=== PATIENT | male | born 1985 | race Caucasian/White ===

== ENCOUNTER 2017-05-12 11:27 | Emergency (ER) | payer MEDICAID ==
[~2017-05-12] VITALS: Ht 185.4 cm; Wt 108.9 kg
[2017-05-12 11:57] VITALS: BP 134/84
== END 2017-05-12 13:05 | disposition home or self-care (01) ==
LOC: EDBD 11:27 → ER 11:27
DX: L25.9 Unspecified contact dermatitis, unspecified cause (principal); F17.210 Nicotine dependence, cigarettes, uncomplicated; Z76.0 Encounter for issue of repeat prescription

== ENCOUNTER 2017-07-19 11:53 | Emergency (ER) | payer MEDICAID | END 2017-07-19 12:14 | disposition left against medical advice (07) | LOC: ER 11:53 | DX: R06.02 Shortness of breath (principal); Z76.0 Encounter for issue of repeat prescription; Z53.21 Procedure and treatment not carried out due to patient leaving prior to being seen by health care provider ==

== ENCOUNTER 2017-07-29 15:17 | Emergency (ER) | payer MEDICAID ==
[~2017-07-29] VITALS: Ht 185.4 cm; Wt 122.5 kg
[2017-07-29 19:20] VITALS: BP 118/74
[2017-07-29] MEDS ORDERED: ALBUTEROL SULF 2.5 MG/0.5ML(0.5%) NEB SOLN NEB ONE (20:00)
[2017-07-29] MEDS ORDERED: IPRATROPIUM BROM 0.5 MG/2.5ML INH SOL NEB ONE (20:00)
== END 2017-07-29 21:36 | disposition home or self-care (01) ==
LOC: ER 15:22
DX: J45.909 Unspecified asthma, uncomplicated (principal); F17.210 Nicotine dependence, cigarettes, uncomplicated; E66.01 Morbid (severe) obesity due to excess calories; Z68.35 Body mass index [BMI] 35.0-35.9, adult
CPT/HCPCS: 71046; 87400; 87804; 94640

== ENCOUNTER 2017-10-27 16:10 | Emergency (ER) | payer MEDICAID ==
[~2017-10-27] VITALS: Ht 185.4 cm; Wt 123.4 kg
[2017-10-27 16:32] VITALS: BP 129/83
== END 2017-10-27 17:59 | disposition home or self-care (01) ==
LOC: ER 16:14
DX: J06.9 Acute upper respiratory infection, unspecified (principal); J02.9 Acute pharyngitis, unspecified; J45.909 Unspecified asthma, uncomplicated; F17.210 Nicotine dependence, cigarettes, uncomplicated

== ENCOUNTER 2018-06-12 19:15 | Emergency (ER) | payer MEDICAID ==
[~2018-06-12] VITALS: Ht 182.9 cm; Wt 108.9 kg
[2018-06-12 22:17] LABS: Basophils # (auto) 0.1 uL; Basophils % (auto) 1.2 % (0.0-2.0); Eosinophils # (auto) 0.7 uL; Eosinophils % (auto) 8.1 % (0.0-7.0); Lymphocytes # (auto) 3.4 uL; Lymphocytes % (auto) 36.7 % (10.0-50.0); Mean Corpuscular Hgb Conc. 34.8 g/dL (32.0-36.0); Mean Corpuscular Volume 86.1 fL (80.0-100.0); Monocytes # (auto) 0.9 uL; Monocytes % (auto) 9.9 % (0.0-12.0); Neutrophils # (auto) 4.1 uL; Neutrophils % (auto) 44.1 % (37.0-80.0); Nucleated Red Blood Cells % 0.2 %; Platelet Count (auto) 270 10^3/uL (140-450); Red Blood Cells 5.34 10^6/uL (4.5-5.90); Red Cell Distribution Width 13.2 % (11.8-14.3); White Blood Cell 9.2 10^3/uL (4.4-10.8)
[2018-06-12 22:35] LABS: Anion Gap 7 (5-15); Blood Urea Nitrogen 15 mg/dL (7-18); Calcium 8.8 mg/dL (8.5-10.1); Carbon Dioxide 27 mmol/L (21-32); Chloride 104 mmol/L (98-107); Glucose 96 mg/dL (74-106); Sodium 138 mmol/L (136-145)
[2018-06-12 22:43] LABS: Alanine Aminotransferase 31 U/L (16-61); Alkaline Phosphatase 81 U/L (45-117); Aspartate Aminotransferase 30 U/L (15-37); BUN/Creatinine Ratio 16.5; Bilirubin, Total 0.8 mg/dL (0.2-1.0); GFR African American 123 mL/min; GFR Non-African American 101 mL/min; Total Protein 7.5 g/dL (6.4-8.2)
[2018-06-13 08:05] VITALS: BP 122/72
== END 2018-06-13 08:08 | disposition home or self-care (01) ==
LOC: EDBD 19:15 → ER 19:18
DX: R07.89 Other chest pain (principal); F17.210 Nicotine dependence, cigarettes, uncomplicated; J45.909 Unspecified asthma, uncomplicated
CPT/HCPCS: 36415; 71046; 80053; 84484; 85025

== ENCOUNTER 2018-07-11 19:08 | Emergency (ER) | payer MEDICAID ==
[~2018-07-11] VITALS: Ht 185.4 cm; Wt 110.2 kg
[2018-07-11 19:49] VITALS: BP 145/90
== END 2018-07-12 00:17 | disposition home or self-care (01) ==
LOC: ER 19:08
DX: L02.415 Cutaneous abscess of right lower limb (principal); B95.8 Unspecified staphylococcus as the cause of diseases classified elsewhere; J45.909 Unspecified asthma, uncomplicated; F20.9 Schizophrenia, unspecified; F17.210 Nicotine dependence, cigarettes, uncomplicated; Z59.0 Homelessness

== ENCOUNTER 2018-08-07 07:00 | Emergency (ER) | payer MEDICAID ==
[~2018-08-07] VITALS: Ht 182.9 cm; Wt 111.6 kg
[2018-08-07 08:44] LABS: Basophils # (auto) 0 uL; Basophils % (auto) 0.8 % (0.0-2.0); Eosinophils # (auto) 0.4 uL; Eosinophils % (auto) 6.5 % (0.0-7.0); Hematocrit 47.6 % (41.0-53.0); Hemoglobin 16.4 g/dL (13.5-17.5); Lymphocytes # (auto) 1.5 uL; Lymphocytes % (auto) 26.9 % (10.0-50.0); Mean Corpuscular Hemoglobin 29.6 pg (28.0-32.0); Mean Corpuscular Hgb Conc. 34.4 g/dL (32.0-36.0); Monocytes # (auto) 0.7 uL; Monocytes % (auto) 11.9 % (0.0-12.0); Neutrophils % (auto) 53.9 % (37.0-80.0); Nucleated Red Blood Cells % 0.2 %; Platelet Count (auto) 273 10^3/uL (140-450); Red Blood Cells 5.54 10^6/uL (4.5-5.90); Red Cell Distribution Width 13.1 % (11.8-14.3); White Blood Cell 5.5 10^3/uL (4.4-10.8)
[2018-08-07 08:58] LABS: Chloride 106 mmol/L (98-107); Potassium 4.1 mmol/L (3.5-5.1); Sodium 139 mmol/L (136-145)
[2018-08-07 09:05] LABS: Alanine Aminotransferase 31 U/L (16-61); Albumin 3.9 g/dL (3.4-5.0); Alkaline Phosphatase 86 U/L (45-117); Amylase 28 U/L (25-115); Anion Gap 7 (5-15); Aspartate Aminotransferase 23 U/L (15-37); Blood Urea Nitrogen 13 mg/dL (7-18); Calcium 8.8 mg/dL (8.5-10.1); Carbon Dioxide 26 mmol/L (21-32); GFR African American > 60 mL/min; GFR Non-African American > 60 mL/min; Glucose 88 mg/dL (74-106); Lipase 74 U/L (73-393); Total Protein 7.6 g/dL (6.4-8.2)
[2018-08-07 09:40] VITALS: BP 109/54
== END 2018-08-07 09:37 | disposition home or self-care (01) ==
LOC: ER 07:00
DX: K29.70 Gastritis, unspecified, without bleeding (principal); M79.672 Pain in left foot; M79.671 Pain in right foot; K40.20 Bilateral inguinal hernia, without obstruction or gangrene, not specified as recurrent; F20.9 Schizophrenia, unspecified; J45.909 Unspecified asthma, uncomplicated; F17.210 Nicotine dependence, cigarettes, uncomplicated; Z59.0 Homelessness
CPT/HCPCS: 36415; 74176; 80053; 82150; 83690; 85025